=== PATIENT | male | born 1995 | race Caucasian/White ===

== ENCOUNTER 2020-01-06 14:45 | Emergency (ER) | payer OTHER, SELFPAY ==
[2020-01-06 14:52] VITALS: BP 120/70; PULSE 130; RESP 16; TEMP 39.7; O2SAT 98
--- NOTE | 2020-01-06 15:11 | ED.URI ---
HPI - URI/Sore Throat General Chief Complaint: Upper Respiratory Infection Stated Complaint: SORE THROAT/COUGH/FEVER/BODY ACHES Time Seen by Provider: 01/06/20 15:12 Source: patient, family and RN notes reviewed Mode of arrival: ambulatory Limitations: no limitations History of Present Illness HPI Narrative: 24-year-old male who presents to [facility] care with complaints of fevers, chills,headache,cough, mucous and sore throat since yesterday. Patient states that he awoke this morning with sweats and chills didn't take his temperature before arriving here, did not take any OTC medications. Patient states that his cough is dry, has some nasal congestion and clear nasal drainage, denies any shortness of breath with SAO2 98% on room air. MD elicited complaint: fever, cough, sore throat, rhinorrhea, nasal congestion and other (headache) Onset (ago): day(s) (2) Consistency: progressively worsening Severity: moderate Description of mucous: clear Able to tolerate fluids by mouth: Yes Exacerbating factors: swallowing, exertion and deep breaths Associated symptoms: fever, chills, headache, rhinorrhea, nasal congestion, sore throat and cough Treatments prior to arrival: none Related Data Allergies Allergy/AdvReac Type Severity Reaction Status Date / Time No Known Allergies Allergy Verified 01/06/20 14:51 Review of Systems Review of Systems: Narrative: CONSTITUTIONAL: positive fever, chills, or sweats. EYES: Denies visual changes, redness, or discharge. ENT: positive rhinorrhea, congestion, sore throat, no otalgia. CARDIOVASCULAR: Denies chest pain, palpitations, or edema. RESPIRATORY: positive coughdenies dyspnea. GASTROINTESTINAL: Denies abdominal pain, nausea, vomiting, or diarrhea. GENITOURINARY: Denies dysuria or hematuria. SKIN: Denies rash or itching. MUSCULOSKELETAL: Denies back pain, joint pain, or myalgia. NEUROLOGIC: positive headache, no numbness, or weakness. PSYCHIATRIC: Denies anxiety or depression. All systems reviewed & are unremarkable except as noted in HPI and below PMFSH Past Medical History Medical History (Updated 01/08/20 @ 10:31 by Guadalupe Cerda NP) No significant past medical history Social History Social History (Updated 01/08/20 @ 10:26 by Guadalupe Cerda NP) Smoking status: Former smoker Smoking end date: 10/21/13 Living arrangements: with family Gender identity (if verbalized by the patient): Male Comments At time of signature, agree with nursing past medical, social history. There is no relevant family history pertinent to the presenting complaint Exam Narrative: Exam Narrative: GENERAL:Illl-appearing, well-nourished, and in no acute distress. HEAD: Normocephalic, atraumatic. EYES: PERRLA and EOMI. ENT: Nares red with clear rhinorrhea or epistaxis. Mucous membranes moist.Tm's normal with normal light reflex, throat red with no exudate or lesions, tonsils swollen NECK: Supple.lymphadenopathy CHEST: Clear to auscultation. No respiratory distress.SAO2 98%on room air. HEART: Regular rate and rhythm. No murmur heard. Normal peripheral pulses. ABDOMEN: Soft, nontender, nondistended, normal active bowel sounds. EXTREMITIES: Normal range of motion. No edema. SKIN: Warm, dry, no rash. NEURO: No focal deficits. Alert and oriented x3. Course Vital Signs Vital signs: Vital Signs Temperature 39.7 C H 01/06/20 14:52 Pulse Rate 130 H 01/06/20 14:52 Respiratory Rate 16 01/06/20 14:52 Blood Pressure 120/70 01/06/20 14:52 Pulse Oximetry 98 01/06/20 14:52 Temperature 39.7 C H 01/06/20 14:52 Pulse Rate 130 H 01/06/20 14:52 Respiratory Rate 16 01/06/20 14:52 Blood Pressure 120/70 01/06/20 14:52 Pulse Oximetry 98 01/06/20 14:52 MDM - URI/Sore Throat Differential Diagnosis Differential diagnosis: Likely upper respiratory infection, sinusitis, influenza and pharyngitis Medical Records Attestation: I reviewed the patient's medical records. Lab Data Attestation
== END 2020-01-06 15:41 | disposition home or self-care (01) ==
PROVIDERS: Emergency Provider Registered Nurse
DX: J01.90 Acute sinusitis, unspecified (principal); J02.9 Acute pharyngitis, unspecified; R05 Cough; Z87.891 Personal history of nicotine dependence
CPT/HCPCS: 87081; 87804; 87880; 99213; G0463

== ENCOUNTER 2021-08-22 11:38 | Emergency (ER) | payer OTHER, SELFPAY ==
--- NOTE | ~2021-08-22 | XR_ITS ---
EXAMINATION: XR chest 1V portable EXAM DATE: 08/22/2021 12:33 INDICATION: Fever and cough. TECHNIQUE: Portable AP frontal chest x-ray was obtained. There is no prior study for comparison. FINDINGS: The lungs are clear. There are no pleural effusions. The cardiomediastinal silhouette is within normal limits. There is no pneumothorax suspected. The bones and soft tissues are unremarkab le. IMPRESSION: No acute cardiopulmonary findings. Reviewed, dictated and finalized at location A.
[2021-08-22 11:56] VITALS: BP 140/87; PULSE 112; RESP 14; TEMP 37.9; O2SAT 95
--- NOTE | 2021-08-22 12:29 | ED.URI ---
HPI - URI/Sore Throat General Chief Complaint: Upper Respiratory Infection Stated Complaint: COLD S/SX Time Seen by Provider: 08/22/21 12:04 Source: patient Mode of arrival: ambulatory Limitations: no limitations History of Present Illness HPI Narrative: This is a 25-year-old male that presents to the emergency department for cold symptoms noted since this morning. Reports fever, cough, myalgias, and sore throat. Reports he took a dose of NyQuil at 5 this morning and did not feel any better, so came in to be seen. He did have Covid last year, he is not Covid vaccinated. Denies chest pain or shortness of breath. Related Data Allergies Allergy/AdvReac Type Severity Reaction Status Date / Time No Known Allergies Allergy Verified 08/22/21 12:14 Review of Systems Review of Systems: CONSTITUTIONAL: Reports fever ENT: Reports congestion, sore throat CARDIOVASCULAR: Denies chest pain RESPIRATORY: Reports cough. Denies dyspnea. All systems reviewed & are unremarkable except as noted in HPI and below PMFSH Past Medical History Medical History (Updated 08/22/21 @ 13:07 by Mary Feldman PA-C) No significant past medical history Social History Social History (Updated 01/08/20 @ 10:26 by Guadalupe Cerda NP) Smoking status: Former smoker Smoking end date: 10/21/13 Gender identity (if verbalized by the patient): Male Exam Narrative: GENERAL: Well-appearing, well-nourished, and in no acute distress. HEAD: Normocephalic, atraumatic. EYES: EOMI. ENT: Nares clear, no rhinorrhea or epistaxis. Mucous membranes moist. Oropharynx with mild erythema; no tonsillar hypertrophy, exudate or other lesions. Bilateral TMs pearly payton non-bulging NECK: Supple. No adenopathy or masses. CHEST: Clear to auscultation. No respiratory distress. No wheezes rales or rhonchi HEART: Regular rate and rhythm. No murmur heard. Normal peripheral pulses. EXTREMITIES: Normal range of motion. No edema. SKIN: Warm, dry, no rash. NEURO: No focal deficits. Alert and oriented x3. PSYCH: Normal mood and affect Course Vital Signs Vital signs: Vital Signs Temperature 100.3 F H 08/22/21 11:56 Pulse Rate 112 H 08/22/21 11:56 Respiratory Rate 14 08/22/21 11:56 Blood Pressure 140/87 08/22/21 11:56 Pulse Oximetry 95 08/22/21 11:56 Temperature 100.3 F H 08/22/21 11:56 Pulse Rate 112 H 08/22/21 11:56 Respiratory Rate 14 08/22/21 11:56 Blood Pressure 140/87 08/22/21 11:56 Pulse Oximetry 95 08/22/21 11:56 MDM - URI/Sore Throat MDM Narrative Medical decision making narrative: Patient presents to the emergency department for cold symptoms present since this morning. He was febrile mildly tachycardic upon arrival, was given antipyretic while in the ED. Oxygen saturation has remained normal on room air. He denies any chest pain or shortness of breath. He is not Covid vaccinated. Reports he did have Covid at the end of last year. Flu and strep screens are negative here. Chest x-ray without acute cardiopulmonary abnormality. SARS-CoV-2 was sent. Patient was instructed on continued care of viral infection. He is to follow-up with his primary care doctor. He was given warnings to return to the ER Lab Data Attestation: I reviewed the patient's lab results. Labs: Influenza A Screen Negative Reference Range: Negative Influenza B Screen Negative Reference Range: Negative Strep Screen Presumptive Negative *(Reference Range: Negative)* Strep Screen Presumptive Negative *(Reference Range: Negative)* Imaging Data Radiologist's impression: ITS Impressions Chest X-Ray 08/22/21 12:34 IMPRESSION: No acute cardiopulmonary findings. Critical Care Time Critical Care Time Critical Car
[2021-08-22] MEDS: ACETAMINOPHEN 500 MG TABLET 1000 MG PO (12:40)
[2021-08-22 13:27] VITALS: BP 127/67; PULSE 80; RESP 14; TEMP 36.9; O2SAT 100
== END 2021-08-22 13:29 | disposition home or self-care (01) ==
PROVIDERS: Emergency Provider Emergency Medicine
DX: B34.9 Viral infection, unspecified (principal); Z86.16 Personal history of COVID-19; Z87.891 Personal history of nicotine dependence
CPT/HCPCS: 71045; 87081; 87804; 87880; 99283; A9270